=== PATIENT | female | born 1955 | race Caucasian/White ===

== ENCOUNTER 2020-12-08 18:08 | Emergency (ER) | payer OTHER, SELFPAY ==
[2020-12-08 18:56] VITALS: BP 173/81; PULSE 54; RESP 17; TEMP 36.8; O2SAT 97; BMI 31.8
--- NOTE | 2020-12-08 21:48 | W.ED.EXTPRO ---
HPI - Extremity Problem General: Chief complaint: Extremity Problem,Nontraumatic Stated complaint: Hip Locked up Time Seen by Provider: 12/08/20 21:47 History of Present Illness: HPI Narrative: Ms Irizarry is a 65 old lady with no significant past medical history presents emergency department with hip pain. She endorses right-sided hip pain that started a few days ago. It initially was just mild however became more stiff and worse with range of motion. She was seen by a chiropractor 3 days ago and that made symptoms significantly worse. She tried [id number] medications without significant relief. She is also been using heat and ice without significant relief. She denies prior injury to the site. Overall the intensity symptoms is moderate to severe. No other specific changes in health, trauma (the patient does ride horses and has been here riding horses), exacerbating, or relieving factors identified. Review of Systems General: Reports: 10 or more systems reviewed and unremarkable except in HPI and below Physical Exam Narrative: EXAM NARRATIVE: GENERAL/CONSTITUTIONAL - well-appearing. Discomfort due to pain Eyes - PERRL, no conjunctival injection ENMT - Atraumatic external nose and ears. Moist mucous membranes NECK - supple. trachea midline CARDIOVASCULAR - regular rate and rhythm. RESPIRATORY -clear to auscultation bilaterally. ABDOMEN/GI - Nontender/Nondistended. MSK - Extremities without obvious deformity or tenderness to palpation. Tenderness with palpation of right lower back as well as range of motion of hip. Distal CMS intact. No overlying skin lesions SKIN - Warm, Dry NEURO - alert and appropriately oriented. strength and sensation intact. Moves all extremities equally. Course ED course: - Patient was seen and evaluated by me at bedside -Vital signs obtained - Initial evaluation notable for as noted above -Symptom treatment ordered - Imaging notable for no acute hip pathology, age-indeterminate L2 superior endplate fracture - Upon serial reexamination after treatment the patient was improved - Based on patient history, evaluation, labs, and imaging as interpreted the most likely cause of the patient's condition is unclear, region of pain would be somewhat atypical for L2 distribution however may be related. Additionally may be musculoskeletal in nature. - The results of ED evaluation were discussed with the patient including prescriptions and/or symptomatic cares (if applicable) including appropriate and responsible use, followup plan, and return precautions. The patient verbalized understanding and felt safe for discharge. - Patient discharged in satisfactory condition. Vital Signs: Vital signs: Vital Signs Temperature 98.2 F 12/08/20 18:56 Pulse Rate 77 12/08/20 23:58 Respiratory Rate 18 12/08/20 23:58 Blood Pressure 131/88 12/08/20 23:58 Pulse Oximetry 98 12/08/20 23:58 MDM - Extremity (Nontraumatic) Medical Records: Attestation: I reviewed the patient's medical records. Lab Data: Attestation: I reviewed the patient's lab results. Discharge Plan Discharge Patient Disposition: Home Clinical Impression: Acute hip pain, Closed compression fracture of L2 vertebra Condition: Stable Prescriptions: New oxycodone 5 mg tablet 5 mg PO Q4H PRN (Reason: pain) Qty: 20 RF: 0 methocarbamol 750 mg tablet 750 mg PO Q8H Qty: 20 RF: 0 Discharge Orders: Discharge ED (Routine); Ordered 12/08/20 Ordered By: Leif Ramos Discharge Diet: Usual diet Discharge Activity: Increase activity as tolerated and Limit activity as instructed Patient Instructions: Vertebral Compression Fracture (ED), Hip Pain (ED), Opioid Safety Activity Restrictions/Additional Instructions: Thank you for visiting the emergency department. You were seen and evaluated for hip pain. The exact cause of your symptoms is unclear. You were found to have an L2 compression fracture of the superior endplate. Please follow-up with your primary care provider and orthopedic or neuro surgical spine physician. Please return the emergency department for worsening symptoms, any new neurologic deficits, or anything else that you are concerned about and feel needs emergency department evaluation. Coding Level of Care Code ED Cash Applications Representative for Aaron Dawson
--- NOTE | 2020-12-08 21:52 | XRR_ITS ---
PROCEDURE INFORMATION: Exam: XR Right Hip Exam date and time: 12/08/2020 9:52 PM Age: 65 years old Clinical indication: Hip pain; Right hip TECHNIQUE: Imaging protocol: XR Right hip. Views: 1 view hip with pelvis when performed. Total images: 3 COMPARISON: No relevant prior studies available. FINDINGS: Bones/joints: No visible fracture, subluxation, or dislocation. No visible significant degenerative disease. No radiographically visible joint effusion. Incidental note of degenerative disc disease L5/S1 with facet arthrosis. Soft tissues: Unremarkable. XR/XR hip RT 2-3V wo/w pel* [id number] IMPRESSION: No acute findings. Radiation Dose CTDIVOL = (mGy): DLP = (mGy-cm)
--- NOTE | 2020-12-08 21:52 | XRR_ITS ---
PROCEDURE INFORMATION: Exam: XR Lumbosacral Spine Exam date and time: 12/08/2020 9:52 PM Age: 65 years old Clinical indication: Low back pain TECHNIQUE: Imaging protocol: XR of the lumbosacral spine. Views: 2 or 3 views. Total images: 3 COMPARISON: No relevant prior studies available. FINDINGS: Bones/joints: Potential recent mild superior endplate fracture L2. Please correlate with site of pain. Pedicles intact. No visible spondylolysis or spondylolisthesis. Facet arthrosis primarily L4/L5 and L5/S1. Advanced degenerative disc disease L4/L5 with disc space height loss and early vacuum disc phenomenon. Less significant degenerative disc disease L5/S1. Soft tissues: Unremarkable. XR/XR lumbar spine 2-3V* [id number] IMPRESSION: Potential recent mild superior endplate fracture L2. Please correlate with site of pain. Radiation Dose CTDIVOL = (mGy): DLP = (mGy-cm)
[2020-12-08] MEDS: methocarbamol 750 mg Tablet PO (22:16)
[2020-12-08] MEDS: acetaminophen 500 mg Tablet 1000 MG PO (22:16)
[2020-12-08] MEDS: ketorolac 30 mg/mL INJ 15 MG IM (22:16)
[2020-12-08] MEDS: oxyCODONE 5 mg IR Tab/Cap PO (22:40)
[2020-12-08 23:58] VITALS: BP 131/88; PULSE 77; RESP 18; O2SAT 98
== END 2020-12-08 23:58 | disposition home or self-care (01) ==
PROVIDERS: Emergency Provider Emergency Medicine
DX: M25.551 Pain in right hip (principal); S32.028A Other fracture of second lumbar vertebra, initial encounter for closed fracture; X58.XXXA Exposure to other specified factors, initial encounter
CPT/HCPCS: 72100; 73502; 96372; 99283; J1885

== ENCOUNTER 2023-06-29 10:03 | Outpatient (CLI) | payer OTHER, SELFPAY | END 2023-06-29 10:04 | disposition home or self-care (01) | LOC: SPT 10:04 | PROVIDERS: Visit Provider Podiatrist Foot & Ankle Surgery | DX: Z46.89 Encounter for fitting and adjustment of other specified devices (principal); S92.902D Unspecified fracture of left foot, subsequent encounter for fracture with routine healing; X58.XXXD Exposure to other specified factors, subsequent encounter | CPT/HCPCS: 97760; L4361 ==

== ENCOUNTER → 2023-07-16 10:19 | Outpatient (BNVA) | payer MEDICARE, SELFPAY | PROVIDERS: PCP Family Medicine; Visit Provider Podiatrist Foot & Ankle Surgery | DX: S92.252A Displaced fracture of navicular [scaphoid] of left foot, initial encounter for closed fracture; S92.022A Displaced fracture of anterior process of left calcaneus, initial encounter for closed fracture; X58.XXXA Exposure to other specified factors, initial encounter | CPT/HCPCS: 73630; 99213 ==

== ENCOUNTER → 2023-07-31 09:30 | Outpatient (BNVA) | payer MEDICARE, SELFPAY | PROVIDERS: PCP Family Medicine; Visit Provider Podiatrist Foot & Ankle Surgery | DX: S92.252A Displaced fracture of navicular [scaphoid] of left foot, initial encounter for closed fracture (principal); S92.022A Displaced fracture of anterior process of left calcaneus, initial encounter for closed fracture; X58.XXXA Exposure to other specified factors, initial encounter | CPT/HCPCS: 73630; 99213 ==

== ENCOUNTER 2023-07-31 11:35 | Outpatient (CLI) | payer MEDICARE, SELFPAY | END 2023-07-31 11:36 | disposition home or self-care (01) | LOC: SPT 11:35 | PROVIDERS: PCP Family Medicine; Visit Provider Podiatrist Foot & Ankle Surgery | DX: Z46.89 Encounter for fitting and adjustment of other specified devices (principal); S92.252D Displaced fracture of navicular [scaphoid] of left foot, subsequent encounter for fracture with routine healing; S92.023 Displaced fracture of anterior process of unspecified calcaneus; X58.XXXD Exposure to other specified factors, subsequent encounter | CPT/HCPCS: 97760; L1902 ==

== ENCOUNTER → 2023-08-14 10:15 | Outpatient (BNVA) | payer MEDICARE, SELFPAY | PROVIDERS: PCP Family Medicine; Visit Provider Podiatrist Foot & Ankle Surgery | DX: S92.252A Displaced fracture of navicular [scaphoid] of left foot, initial encounter for closed fracture; S92.022D Displaced fracture of anterior process of left calcaneus, subsequent encounter for fracture with routine healing; S92.252D Displaced fracture of navicular [scaphoid] of left foot, subsequent encounter for fracture with routine healing; X58.XXXD Exposure to other specified factors, subsequent encounter | CPT/HCPCS: 99213 ==

== ENCOUNTER → 2023-10-02 09:59 | Outpatient (BNVA) | payer MEDICARE, SELFPAY | PROVIDERS: PCP Family Medicine; Visit Provider Podiatrist Foot & Ankle Surgery | DX: M54.16 Radiculopathy, lumbar region (principal) | CPT/HCPCS: 99213 ==

== ENCOUNTER → 2023-10-18 15:11 | Outpatient (BNVA) | payer MEDICARE, SELFPAY | PROVIDERS: PCP Family Medicine; Referring Provider Podiatrist Foot & Ankle Surgery; Visit Provider Orthopaedic Surgery | DX: M54.16 Radiculopathy, lumbar region (principal) | CPT/HCPCS: 72110; 99204 ==

== ENCOUNTER 2023-12-03 11:28 | Outpatient (CLI) | payer MEDICARE, SELFPAY ==
--- NOTE | 2023-12-03 11:45 | MR_ITS ---
WS: [id number] MRI LUMBAR SPINE NONCONTRAST HISTORY: low back pain COMPARISON: None available. TECHNIQUE: Sagittal and axial multisequence imaging is submitted. Moderate increase in thoracic kyphosis and lumbar lordosis. No acute fracture. Mild concave deformity superior endplate of L2. Disc spaces are narrowed and desiccated. Conus terminates normally at L1-2 disc level. Liver is enlarged. L1-L2: Mild annular disc bulging. Shallow RIGHT paracentral disc protrusion. Ligamentum flavum and fa cet joint arthropathy. Mild bilateral foraminal stenosis. L2-L3: Mild annular disc bulging with a shallow LEFT foraminal disc protrusion. There is also a small central disc protrusion. Mild encroachment upon the ventral thecal sac and RIGHT subarticular recess . Moderate facet joint arthritis. L3-L4: Mild annular disc bulging encroaching upon the ventral thecal sac. Mild facet joint arthritis. L4-L5: Diffuse annular disc bulging with moderate facet and ligamentum flavum hypertrophy. Disc encro achment upon the subarticular recesses, LEFT greater than RIGHT. Small foraminal osteophytes. Mild ce ntral, bilateral subarticular recess and foraminal stenosis. Slightly greater encroachment upon the L EFT traversing L5 nerve root. L5-S1: Mild annular disc bulging with a central disc protrusion. Facet joint arthritis. Paravertebral soft tissues are negative. MR/MR lumbar spine wo con* [id number] IMPRESSION: 1. Multilevel degenerative disc disease and facet joint arthritis. No high-gra de central stenosis. 2. L1-2: Shallow RIGHT paracentral disc protrusion. 3. L2-3: Small central and LEFT foraminal disc protrusions. Very slight encroa chment upon the thecal sac and RIGHT subarticular recess. 4. L4-5: Mild central, bilateral subarticular recess and foraminal stenosis. S lightly greater disc encroachment upon the LEFT traversing L5 nerve root. 5. Shallow central disc protrusion at L5-S1:
== END 2023-12-03 11:29 | disposition home or self-care (01) ==
LOC: RAD 11:28
PROVIDERS: PCP Family Medicine; Visit Provider Orthopaedic Surgery
DX: M54.16 Radiculopathy, lumbar region (principal); M51.369 Other intervertebral disc degeneration, lumbar region without mention of lumbar back pain or lower extremity pain; M51.26 Other intervertebral disc displacement, lumbar region
CPT/HCPCS: 72148

== ENCOUNTER → 2023-12-25 14:23 | Outpatient (BNVA) | payer MEDICARE, SELFPAY | PROVIDERS: PCP Family Medicine; Visit Provider Orthopaedic Surgery | DX: Z09 Encounter for follow-up examination after completed treatment for conditions other than malignant neoplasm (principal) | CPT/HCPCS: 99214 ==